=== PATIENT | female | born 1960 | race Two or more races ===

== ENCOUNTER → 2024-10-27 | Outpatient (CLI) | payer OTHER, SELFPAY ==
[2024-10-27 07:35] LABS: Quantiferon-TB* See Sep Rpt
[2024-10-27 08:29] LABS: Basophils # (Auto) 0.1 Thou/mm3 (0.0-0.2); Basophils % (Auto) 1 % (0-2.5); Eosinophils # (Auto) 0.2 Thou/mm3 (0.0-0.5); Eosinophils % (Auto) 2 % (0-10); Hematocrit 36.1 % (36.0-46.0); Hemoglobin 12.3 g/dL (12.0-16.0); Immature Granulocytes % (Auto) 0 % (0-0); Immature Granulocytes Auto 0.01 Thou/mm3 (0.00-0.00); Lymphocytes # (Auto) 2.7 Thou/mm3 (1.0-4.8); Lymphocytes % (Auto) 34 % (10-50); Mean Corpuscular HGB Conc 34.1 g/dl (31.0-37.0); Mean Corpuscular Hemoglobin 31.5 pg (25.0-35.0); Mean Corpuscular Volume 93 fL (80-100); Monocytes # (Auto) 0.4 Thou/mm3 (0.0-0.8); Monocytes % (Auto) 6 % (0-12); Neutrophils # (Auto) 4.5 Thou/mm3 (1.8-7.7); Neutrophils % (Auto) 58 % (37-80); Nucleated Red Blood Cell % 0 /100 WBC (0); Platelet Count 330 Thou/mm3 (140-440); RDW Standard Deviation 42.2 fL (36.4-46.3); White Blood Count 7.8 Thou/mm3 (3.6-11.0)
[2024-10-27 08:44] LABS: Parathyroid Hormone Intact 49.4 pg/ml (18.5-88.0)
[2024-10-27 08:49] LABS: Glucose Estimated Average 137 mg/dL (80-131); Hemoglobin A1C 6.4 % Hgb (4.8-6.0)
[2024-10-27 08:49] LABS: Creatinine MALB Rnd Ur 80 mg/dL (30-125); Microalbumin, Random Urine < 3 mg/L (0-300)
[2024-10-27 08:50] LABS: Folate 10.15 ng/mL (>5.38); Vitamin B12 422 pg/mL (211-911); Vitamin D 25 Hydroxy Total 22.3 ng/mL (7.3-40.2)
[2024-10-27 08:52] LABS: Ferritin 124 ng/mL (7.3-270.7); Iron 115 mcg/dL (50-170); Total Iron Binding Capacity 405 mcg/dL (250-425)
[2024-10-27 09:07] LABS: Sed Rate (ESR) < 1 mm/hr (0-30)
[2024-10-27 09:10] LABS: Alanine Aminotransferase 10 U/L (10-49); Albumin, Serum 4.8 gm/dL (3.4-4.8); Albumin/Globulin Ratio 2.3 (1.2-2.2); Alkaline Phosphatase 119 U/L (46-116); Amylase 159 U/L (30-118); Anion Gap 9 (7-16); Aspartate Amino Transferase 16 U/L (0-34); BUN/Creatinine Ratio 25 Ratio (12-20); Bilirubin,Total 0.4 mg/dL (0.3-1.2); Blood Urea Nitrogen 28 mg/dL (9-23); Calcium 10.5 mg/dL (8.3-10.6); Calcium (Corrected) 10.5 mg/dL (8.5-10.1); Carbon Dioxide 25.8 mMol/L (20.0-31.0); Cardiac Risk Estimate 3.2 RATIO (3.7-5.6); Chloride 107 mMol/L (98-107); Cholesterol 150 mg/dL (132-200); Creatinine (Component) 1.1 mg/dL (0.6-1.3); Free T4 (Free Thyroxine) 1.24 ng/dL (0.89-1.76); Globulin 2.1 gm/dL (2.3-3.5); Glucose 134 mg/dL (74-106); HDL Cholesterol 47 mg/dL (40-60); LDL Cholesterol,Calculated 77 mg/dL (0-130); Lipase 63 U/L (12-53); Magnesium 2.1 mg/dL (1.6-2.6); Osmolality,Calculated 290 (275-295); Potassium 4.7 mMol/L (3.4-5.1); Sodium 142 mMol/L (136-145); Thyroid Stimulating Hormone 0.72 uIU/mL (0.55-4.78); Total Protein 6.9 gm/dL (5.7-8.2); Triglycerides 132 mg/dL (30-150); eGFR 56 See Note
[2024-10-27 09:17] LABS: C-Reactive Protein < 0.4 mg/dL (0.0-0.9)
[2024-11-01 07:02] LABS: T3 Uptake* 26 % (22-35)
== END | disposition home or self-care (01) ==
LOC: COPL 07:10
PROVIDERS: PCP Internal Medicine; Referring Provider Nurse Practitioner Family; Visit Provider Nurse Practitioner Family
DX: E11.65 Type 2 diabetes mellitus with hyperglycemia (principal); E78.2 Mixed hyperlipidemia
CPT/HCPCS: 36415; 80053; 80061; 82043; 82150; 82306; 82570; 82607; 82728; 82746; 83036; 83540; 83550; 83690; 83735; 83970; 84439; 84443; 84479; 85025; 85652; 86140; 86480